=== PATIENT | female | born 1975 | race Caucasian/White ===

== ENCOUNTER 2024-11-17 12:07 | Outpatient (REF) | payer OTHER, SELFPAY ==
[2024-11-17 15:17] LABS: Folate 12.1 ng/mL (> or = 4.0); Vitamin B12 364 pg/mL (200-900)
[2024-11-18 06:53] LABS: Lyme Abs Screen <0.90 index
== END 2024-11-17 12:08 | disposition home or self-care (01) ==
LOC: HO.LAB 12:07
PROVIDERS: PCP Internal Medicine; Visit Provider Psychiatry & Neurology Neurology
DX: G43.009 Migraine without aura, not intractable, without status migrainosus (principal); G93.40 Encephalopathy, unspecified; Z01.84 Encounter for antibody response examination
CPT/HCPCS: 36415; 82607; 82746; 86617; 86618

== ENCOUNTER 2024-11-17 12:07 | Outpatient (AMB) | payer OTHER, SELFPAY ==
--- NOTE | 2024-11-17 12:13 | A.OFFVIS_ITS ---
Intake Visit Reasons: 1YR Allergies No Known Allergies Allergy (Verified 09/18/24 08:36) HPI Comments Details: 49 years old woman with breast cancer status post mastectomy and being treated with tamoxifen, and migraine without aura relatively better with topiramate and as-needed sumatriptan. She is presenting with cognitive dysfunction characterized by significant brain fog, difficulties in word finding, sentence completion, and name recall. These symptoms began when she started taking tamoxifen two years ago after breast cancer treatment. She links these cognitive symptoms primarily to tamoxifen, having taken Topamax for migraines without prior cognitive issues. Additionally, she experiences migraines, noting improvement recently attributed to reduced stress. The patient takes migraine medication daily, with another medication as needed. Her medical history includes breast cancer, treated with a double mastectomy and subsequent tamoxifen therapy due to its stage 1 classification. [facility] Medical History (Updated 11/17/24 @ 12:20 by Mike Aguirre MD) Migraine without aura Review of Systems Const Details: - Neurological: Reports migraines, cognitive dysfunction including brain fog, difficulties in word finding, sentence completion, and name recall. - Psychiatric: Reports improved stress levels. - Sleep: Denies sleep disturbances. - General: Denies any implantable metal or devices like pacemakers. Physical Exam Neuro Other: She is alert and awake with normal spontaneity of speech fluency comprehension and somewhat flat affect. Balance gait and coordination are normal. Assessment & Plan Assessment & Plan (1) Migraine without aura: Code(s): G43.009 - Migraine without aura, not intractable, without status migrainosus Category: Medical Qualifiers: Status migrainosus presence: without status migrainosus Intractability: not intractable Qualified Code(s): G43.009 - Migraine without aura, not intractable, without status migrainosus (2) Encephalopathy: Code(s): G93.40 - Encephalopathy, unspecified Category: Medical Qualifiers: Encephalopathy type: unspecified encephalopathy Qualified Code(s): G93.40 - Encephalopathy, unspecified Plan During the consultation, we addressed the patient's migraines and cognitive symptoms. We discussed the potential link between tamoxifen and cognitive dysfunction, noting the patient's symptom onset post-initiation of the medication. For migraines, the current regimen continues as effective and involves Topamax daily, complemented by another medication as needed. To evaluate cognitive dysfunction, diagnostic tests including an MRI will be arranged. Blood work will also be conducted to exclude other causes. We reviewed no changes to her cancer-related treatment. MRI results and blood test findings will guide further management. Orders: Orders MR head/brain wo/w con Today G93.40 - Encephalopathy, unspecified Vitamin B12 and Folate Today G93.40 - Encephalopathy, unspecified Lyme IgG/IgM w/reflex to WB Today G93.40 - Encephalopathy, unspecified Medications: New topiramate 50 mg PO DAILY 90 tabs 1RF Changed From sumatriptan succinate take 1 tab at onset of headache; if no relief may repeat 1 tab after at least 2 hrs; max = 4 tabs/24 hr PO To sumatriptan succinate 50 mg orally one a day as needed; 30 tabs 1RF 90 days Coding Level of Care Code Est Pt Level 5 (27315) Diagnoses Migraine without aura and without status migrainosus, not intractable G43.009 Status migrainosus presence: without status migrainosus Intractability: not intractable Encephalopathy, unspecified type G93.40 Encephalopathy type: unspecified encephalopathy
--- OUTSIDE RECORDS SUMMARY | 2024-11-17 15:01 | XMS_ITS | Continuity of Care Document ---
Author Organization [facility] Address [address] [place] [address] Phone [phone] Care Team Providers Care Clearance Rep Name Role Phone Eros Mccall M.D. Care Team Information Skid Man [phone] Problems Active Problems Provider Date Cyst of thyroid Joaquín Roque M.D. Onset: Migraine Joauqín Roque M.D. Onset: Acne Joaquín Roque M.D. Onset: Carcinoma of breast Joaquín Roque M.D. Onset: 12/24/2022 Social History Type Date Description Comments Sex Female Sex Unknown Tobacco Use Start: Unknown Never Smoked Cigarettes Smoking Status Reviewed: 12/24/22 Never Smoked Cigaret nakul ETOH Use Occasionally consumes alcoho l Allergies and adverse reactions Description No Known Drug Allergies Medications Active Medications SIG Qnty Indications Order ing Provider Date [id number] Tablets 1 by mouth once a day 180tabs Tamie Venegas Hxpnmstuyw84ik Tablets take 1 tablet by mouth twice a day 180tabs Mike Aguirre MD Sumatriptan Ttphlrcrw64je Tablets take 1 tablet by mouth every day as needed for migraine 9tabs Mike Aguirre MD Tretinoin0.025% Cream apply sparingly to the face daily for maintenance Tamie Venegas Tamoxifen Lwnnyei77rt Tablets Unknown Vital Signs Date Vital Result Comment 02/07/2024 3:38pm BP Systolic 108 mmHg BP Diastolic 70 mmHg Heart Rate 84 /min Height 62 inches 5'2 Weight 135.00 lb BMI (Body Mass Index) 24.7 kg/m2 Medical Devices Description No Information Available Encounters Type Date Location Provider Dx Diagnosis Office Visit 02/07/2024 3:15p Main Office ANDRA Forde E04.1 Nontoxic sing le thyroid nodule Assessments Date Code Description Provider 02/07/2024 E04.1 Thyroid nodule ANDRA Cain Plan of Treatment Future Appointment(s):* 02/05/2025 9:00 am - Beverly Marino CNP at Main Office 02/07/2024 - ANDRA Forde* E04.1 Thyroid nodule Functional Status Description No Information Available Mental Status Description No Information Available Referrals Description No Information Available
== END 2024-11-17 12:27 | disposition home or self-care (01) ==
LOC: HO.HSM 12:07
PROVIDERS: PCP Internal Medicine; Visit Provider Psychiatry & Neurology Neurology
DX: G43.009 Migraine without aura, not intractable, without status migrainosus (principal); G93.40 Encephalopathy, unspecified
CPT/HCPCS: 99214

== ENCOUNTER 2024-12-23 14:53 | Outpatient (AMB) | payer OTHER, SELFPAY ==
--- NOTE | 2024-12-23 15:14 | MHC.OFFVIS ---
Intake Visit Reasons: after mri Allergies No Known Allergies Allergy (Verified 09/18/24 08:36) HPI Comments Details: 49 years old woman with breast cancer status post mastectomy and being treated with tamoxifen, and migraine without aura relatively better with topiramate and as-needed sumatriptan. She is presenting with brain fog and word-finding difficulty. The patient started experiencing these cognitive difficulties after initiating Tamoxifen and has been using Topiramate for migraine prevention for several years without noticing cognitive side effects prior. Her sleep is described as satisfactory if she receives at least eight hours; however, snoring and potential Sleep Apnea may influence her restfulness, correlating with her small chin and narrow throat features. There is no significant apprehension concerning dementia on her part. The reliance on caffeine to maintain alertness was noted but not excessively detrimental to daily functioning. [facility] Medical History (Updated 12/23/24 @ 15:25 by Mike Aguirre MD) Migraine without aura Review of Systems Narrative - Neurological: Reports brain fog, word-finding difficulty. - Sleep: Reports adequate sleep with snoring; requires 8 hours for restfulness. - Musculoskeletal: No specific issues mentioned or denied. - Cardiovascular: Not explicitly mentioned or denied. - Respiratory: Not explicitly mentioned or denied. Physical Exam Neuro Other: Mental Status: Alert and oriented to person, place, and time. Normal attention. Normal spontaneous speech, fluency, and comprehension. Cranial Nerves: CN II: Visual love full to confrontation, visual acuity intact. CN III, IV, : Pupils equal, round, reactive to light and accommodation. Extraocular movements are normal. CN V: Facial sensation is normal. CN VII: Facial movements symmetrical. CN VIII: Hearing intact to bedside conversation is normal. CN IX, X: Palate elevates symmetrically. CN XI: Shoulder shrug and head turn symmetrical. CN XII: Tongue midline without atrophy or fasciculations. Motor: Bulk and tone normal in all extremities. No significant muscle weakness in arms and legs. No drift. Reflexes: Deep tendon reflexes 2+ and symmetric. Plantar response down-going bilaterally. Coordination: Nzvdtw-wq-pore and rqho-pl-rttc testing normal. No dysmetria. Gait and Station: No obvious gait abnormality. No ataxia or instability. Extrapyramidal: Full facial expressions and blinking. No rigidity. Movements are appropriate with no tremor or abnormality. Speech: Normal; no dysarthria or tremor. Results Reviewed Results Reviewed: Laboratory Tests 11/17/24 12:42 Vitamin B12 364 Folate 12.1 Lyme Screen IgG & IgM <0.90 Lyme Progressive Test TNP Assessment & Plan Assessment & Plan (1) Migraine without aura: Comment: MRI brain [facility] at [place] in Nov 2024: WNL (reported). CD did not open Code(s): G43.009 - Migraine without aura, not intractable, without status migrainosus Category: Medical Qualifiers: Status migrainosus presence: without status migrainosus Intractability: not intractable Qualified Code(s): G43.009 - Migraine without aura, not intractable, without status migrainosus (2) ALEJANDRINA (obstructive sleep apnea): Code(s): G47.33 - Obstructive sleep apnea (adult) (pediatric) Category: Medical Plan Impression: 1. Migraine without aura treated with topiramate with success for many years 2. Mild cognitive difficulties with normal labs were normal brain MRI. She was on tamoxifen and was thinking that that was the reason for her problems. She also has micrognathia and relatively neuro throat. These features put her at risk for obstructive sleep apnea, which can also present with similar symptoms. Recommendations: Home polysomnogram Orders: Orders RT home sleep study Today G47.33 - Obstructive sleep apnea (adult) (pediatric) Coding Level of Care Code Est Pt Level 4 (40335) Diagnoses Migraine without aura and without status migrainosus, not intractable G43.009 Status migrainosus presence: without status migrainosus Intractability: not intractable ALEJANDRINA (obstructive sleep apnea) G47.33
--- OUTSIDE RECORDS SUMMARY | 2024-12-23 19:18 | XMS_ITS | Encounter Summary ---
Author Organization [facility] Address [address] [place] [address] Phone Care Team Providers Care Alternative Education Teacher Name Role Phone CalEros tabares Savana SANTILLAN Primary Care Provider [phone] Self-Referred, Patient Unavailable Unavailab Zachariah Monroy MD, PhD Unavailable + [phone] Encounter Details Date Type Department Care Team (Late st Contact Info) Description 03/25/2023 Procedure Pass [facility] Periop 1st floor [address] [place] [address] Social History Tobacco Use Types Packs/Day Years Used Date Smoking Tobacco: Never Smokeless Tobacco: Never Alcohol Use Standard Drinks/Week Comments Yes 2 (1 standard drink = 0.6 oz pur e alcohol) Rarely, last drink 09/2022 Child or Family Care Answer Date Record ed Do you have problems with on e of the following making it difficult for you to work, study, or receive health care? No 10/23/2022 Education Answer Date Recorded Are you interested in help w ith more adult education (for example, completing high school, GED, job training, learning the Amharic language, technical skills, or developing parenting skills)? No 10/23/2022 Are you concerned about learning? Not on file 10/23/2022 No 10/23/2022 Yes 10/23/2022 Food Answer Date Recorded Within the past 6 months we worried whether our food would run out before we got money to buy more. Never True 10/23/2022 Within the past 6 months the food we bought just didn't last and we didn't have enough money to get more. Never True Residential Stability Answer Date Recor ded What is your housing situation today? I have jb rogers 10/23/2022 How many times have you move d in the past 12 months? Zero (I did not move) 10/23/2022 Paying for Meds Answer Date Recorded Do you have trouble paying for medicines? No 10/23/2022 Paying Utility Bills Answer Date Record ed Do you have trouble paying your heating or elect ricity bill? No 10/23/2022 Transportation Answer Date Recorded Has the lack of transportati on kept you from medical appointments or from getting medications? No 10/23/2022 Digital Access Answer Date Recorded No 10/19/2022 No 10/19/2022 Reliable internet access at home? Not on file 10/19/2022 Device with a working camera? Not on file Intimate Partner Violence Answer Date R ecorded Are you denied basic needs s uch as food, clothing, or medical care? No 03/25/2023 In the past 12 months have y ou been in a relationship with a person who hurts, threatens, or tries to control you? No 03/25/2023 Are you denied basic needs s uch as food, clothing, or medical care? No 03/25/2023 In the past 12 months have y ou been in a relationship with a person who hurts, threatens, or tries to control you? No 03/25/2023 Comments No Sex and Gender Information Value Date Recorded Sex Assigned at Female 10/19/2022 4:43 PM EDT Legal Sex Female 11:32 AM EDT Gender Identity Female 10/19/2022 4:43 PM EDT Sexual Orientation Straight 10/19/2022 4: 43 PM EDT documented as of this encounter Plan of Treatment Upcoming Encounters Date Type Department Care Team (Late st Contact Info) Description 03/29/2025 9:00 AM EST Office Visit [facility], [facility], [facility] [place] at [address] [address] Annetta Linares NP [address] [place] [address] [place] [address] [email or web address] Olivia Scott MD [address] [place] [phone] [email or web address] 03/29/2025 9:30 AM EST Office Visit [facility], [facility] [place] [facility], [facility] [place] [facility] [place] [address] [address] Zachariah Hi MD, PhD [address] [place] [address] [email or web address] documented as of this encounter Visit Diagnoses Not on filedocumented in this encounter Care Teams Alternative Education Teacher Relationship Specialty Start Date End Date Eros Mccall MD [address] [place] [address] PCP - General Internal Medicine 10/19/22 Self-Referred, Patient 10/19/22 Zachariah Hi MD, PhD [address] [place] [address] [email or web address] Medical Oncology 05/08/23 documented as of this encounter Additional Source Comments The information contained in this document represents components of the legal health record. It is not the complete legal health record.[facility]
--- OUTSIDE RECORDS SUMMARY | 2024-12-23 19:18 | XMS_ITS | Encounter Summary ---
Author Organization [facility] Address [address] [place] [address] Phone Care Team Providers Care Land Mobile Radio Technician Name Role Phone CalEros tabares Savana SANTILLAN Primary Care Provider [phone] Self-Referred, Patient Unavailable Unavailab Zahcariah Monroy MD, PhD Unavailable + [phone] Encounter Details Date Type Department Care Team (Late st Contact Info) Description 10/30/2022 Procedure Pass [facility] [address] [facility] 2nd [place] [address] Social History Tobacco Use Types Packs/Day Years Used Date Smoking Tobacco: Never Smokeless Tobacco: Never Alcohol Use Standard Drinks/Week Comments Yes 1 (1 standard drink = 0.6 oz pur e alcohol) Child or Family Care Answer Date Record ed Do you have problems with on e of the following making it difficult for you to work, study, or receive health care? No 10/23/2022 Education Answer Date Recorded Are you interested in help w ith more adult education (for example, completing high school, GED, job training, learning the Croatian language, technical skills, or developing parenting skills)? [...] with a working camera? Not on file Comments Unknown Sex and Gender Information Value Date Recorded [...] Oncology, [facility], [facility] [place] at [address] [address] Annetta Linares NP [address] [place] [phone] [email or web address] Olivia Scott MD [address] [place] [phone] [email or web address] 03/29/2025 9:30 AM EST Office Visit [facility], [facility], [facility] [place] [facility] [place] [address] [facility] 4th [place] [address] Zachariah Hi MD, PhD [address] [place] [address] [email or web address] documented as of this encounter Visit Diagnoses Not on filedocumented in this encounter Care Teams Land Mobile Radio Technician Relationship Specialty Start Date End Date Eros Mccall MD [address] [facility] [address] [place] [address] PCP - General Internal Medicine 10/19/22 Self-Referred, Patient 10/19/22 Zachariah Hi MD, PhD [address] [place] [phone] [email or web address] Medical [email or web address] 05/08/23 documented as of this encounter Additional Source Comments The information contained in this document represents components of the legal health record. It is not the complete legal health record.[facility]
--- OUTSIDE RECORDS SUMMARY | 2024-12-23 19:18 | XMS_ITS | Encounter Summary ---
Author Organization [facility] Address [address] [place] [address] Phone Care Team Providers Care Grounds Cleaner Name Role Phone Cal, Erosdre Sawant MD Primary Care Provider [phone] Self-Referred, Patient Unavailable Unavailab Zachariah Monroy MD, PhD Unavailable + [phone] Encounter Details Date Type Department Care Team (Late st Contact Info) Description 10/31/2022 Ancillary Orders [facility] [address] [address] Olivia Scott MD [address] [place] [phone] [email or web address] Abnormal finding on breast imaging Social History Tobacco Use Types Packs/Day Years [...] high school, GED, job training, learning the Macedonian language, technical skills, or developing parenting skills)? [...] your housing situation today? I have jb sing 10/23/2022 How many times have you move [...] Oncology, [facility], [facility] [place] [facility] [place] [address] [address] Annetta Linares NP [address] [place] [phone] [email or web address] Olivia Scott MD [address] [place] [address] [email or web address] 03/29/2025 9:30 AM EST Office Visit [facility], [facility], [facility] [place] [facility] [place] [address] [address] Zachariah Hi MD, PhD [address] [place] [phone] [email or web address] documented as of this encounter Visit Diagnoses Diagnosis Abnormal finding on breast imaging documented in this encounter Care Teams Grounds Cleaner Relationship Specialty Start Date End Date Eros Mccall MD [address] [facility] [address] [place] [address] PCP - General Internal Medicine 10/19/22 Self-Referred, Patient 10/19/22 Zachariah Hi MD, PhD [address] [place] [phone] [email or web address] Medical Oncology 05/08/23 documented as of this encounter Additional Source Comments The information contained in this document represents components of the legal health record. It is not the complete legal health record.[facility]
--- OUTSIDE RECORDS SUMMARY | 2024-12-23 19:18 | XMS_ITS | Continuity of Care Document ---
Author Organization [facility] Address [address] [place] [address] Phone [phone] Care Team Providers Care Portable Sawmill Operator Name Role Phone Eros Mccall M.D. Care Team Information Centerpuncher [phone] Problems Active Problems Provider Date Cyst of thyroid Joaquín Roque M.D. Onset: Migraine Joaquín Roque M.D. Onset: Acne Joaquín Roque M.D. Onset: Carcinoma of breast Joaquín Roque M.D. Onset: 12/24/2022 Social History Type Date Description Comments Sex Female Sex Unknown Tobacco Use Start: Unknown Never Smoked Cigarettes ETOH Use Occasionally consumes alcoho l Allergies and adverse reactions Description No Known Drug Allergies Medications Active Medications SIG Qnty Indications Order ing Provider Date Bfkjhtndwfduar974mr Tablets 1 by mouth once a day 180tabs Tamie Venegas Yhllszgsqg14sj Tablets take 1 tablet by mouth twice a day 180tabs Mike Aguirre MD Sumatriptan Kvmlkfaeb71ae Tablets take 1 tablet by mouth every day as needed for migraine 9tabs Mike Aguirre MD Tretinoin0.025% Cream apply sparingly to the face daily for maintenance Tamie Venegas Tamoxifen Jgxscof98fv Tablets Unknown Vital Signs Date Vital Result [...]
--- OUTSIDE RECORDS SUMMARY | 2024-12-23 19:18 | XMS_ITS | Encounter Summary ---
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, estrogen receptor positive Procedures MRI Breast (Left) MRP Biopsy Breast (Left) KS BX BREAST W DEVICE 1ST LESION MAGNETIC RES GUIDE KS BX BREAST W DEVICE ADDL LESION MAGNET RES GUIDE CHG DIAGNOSTIC MAMMOGRAPHY COMPUTER-AIDED DETCJ UNI CHG X-RAY EXAM, BREAST SPECIMEN KS MOD SED SAME PHYS/QHP INITIAL 15 MINS 5/> YRS KS MOD SED SAME PHYS/QHP EACH ADDL 15 MINS CHG MRI BREAST W/OUT&WITH CONTRAST W/CAD UNILATERAL Olivia Scott MD Phone: tel: fax: mailto:[email or web address] Referral ID Status Reason Start Date Expiration Date Visits Re quested Visits Authorized [id number] Closed 10/31/2022 04/29/2023 1 1 Encounter Details Date Type Department Care Team (Late st Contact Info) Description 10/31/2022 Ancillary Orders [facility], [facility], [facility] [place] [facility] [place] [address] [facility] 4th [place] [address] Olivia Scott MD [address] [place] [address] [email or web address] Carcinoma of central portion of right breast in female, estrogen receptor positive Social History Tobacco Use Types Packs/Day Years [...] high school, GED, job training, learning the Uzbek language, technical skills, or developing parenting skills)? [...] Oncology, [facility], [facility] at [address] [address] Annetta Linares NP [address] [place] [address] [email or web address] Olivia Scott MD [address] [place] [address] [email or web address] 03/29/2025 9:30 AM EST Office Visit [facility], [facility], [facility] at [address] [address] Zachariah Hi MD, PhD [address] [place] [address] [email or web address] documented as of this encounter Results * BI MRI BREAST WITH AND WITHOUT CONTRAST (LEFT) (10/31/2022 4:26 PM EDT) Anatomical Region Laterality Modality Breast Left, Breast Bilateral Left Ma gnetic Resonance 10/31/2022 4:49 PM EDT Impressions 11/01/2022 9:10 AM EDT MRI guided biopsy was terminated due to a large portion of the bolus of contrast extravasating into the patient's left arm. After a period of observation in the [facility] MRI suite, patient was discharged home with the plan of rescheduling the biopsy for 11/01/2022 at 3:15 PM. ATTESTATION: Hanh Connelly, as teaching physician have reviewed the images, if any, for this patient's exam, and if necessary, have edited the report originally created by Su De Jesus. Narrative 11/01/2022 9:10 AM EDT BI MRP BIOPSY BREAST (LEFT) Additional patient information: 47-year-old woman with recently diagnosed right breast invasive lobular carcinoma presents for MRI guided biopsy of an enhancing mass in the central outer left breast at posterior depth. COMPARISON: Comparison is made with relevant prior imaging. TECHNIQUE: The procedure was explained to the patient, including discussion of risks and benefits, and written informed consent was obtained. A preprocedural timeout was performed to confirm patient identity with multiple identifiers, as well as the side of the procedure to be performed. MRI imaging was performed to localize the target. Intravenous gadolinium contrast was administered. A portion of the bolus of contrast extravasated into the patient's left arm. The patient was immediately examined by Su De Jesus MD, and Hanh Morales MD. The patient endorsed discomfort in the upper left arm; however, she denied any numbness/tingling. Patient demonstrated full range of motion and sensation of the left hand and fingers. Radial pulse was palpated. Patient was instructed to elevate the left arm and apply cold compresses. She was observed in the [facility] MRI suite for 15 minutes without incident. She was then discharged home with a plan of rescheduling the biopsy for a future date. Patient was called at 8:[address] Hanh Morales on 10/31/2022 and reported resolving symptoms. FINDINGS: MRI guided biopsy was terminated due to a partial bolus contrast extravasating into the patient's left arm. Patient has been rescheduled for 3:15 PM on 11/01/2022. Procedure Note Hanh Morales MD - 11/01/2022 BI MRP BIOPSY BREAST (LEFT) Additional patient information: 47-year-old woman with recently diagnosedright breast invasive lobular carcinoma presents for MRI guided biopsy ofan enhancing mass in the central outer left breast at posterior depth. COMPARISON: Comparison is made with relevant prior imaging. TECHNIQUE: The procedure was explained to the patient, including discussion of risksand benefits, and written informed consent was obtained. A preproceduraltimeout was performed to confirm patient identity with multipleidentifiers, as well as the side of the procedure to be performed. MRI imaging was performed to localize the target. Intravenous gadoliniumcontrast was administered. A portion of the bolus of contrast extravasatedinto the patient's left arm. The patient was immediately examined by MD Iain, and Hanh Morales MD. The patient endorsed discomfort inthe upper left arm; however, she denied any numbness/tingling. Patientdemonstrated full range of motion and sensation of the left hand andfingers. Radial pulse was palpated. Patient was instructed to elevate theleft arm and apply cold compresses. She was observed in the [facility] MRIsuite for 15 minutes without incident. She was then discharged home with aplan of rescheduling the biopsy for a future date. Patient was called at8:[address] Hanh Morales on 10/31/2022 and reported resolvingsymptoms. FINDINGS: MRI guided biopsy was terminated due to a partial bolus contrastextravasating into the patient's left arm. Patient has been rescheduledfor 3:15 PM on 11/01/2022. IMPRESSION: MRI guided biopsy was terminated due to a large portion of the bolus ofcontrast extravasating into the patient's left arm. After a period ofobservation in the [facility] MRI suite, patient was discharged home withthe plan of rescheduling the biopsy for 11/01/2022 at 3:15 PM. ATTESTATION: Hanh Connelly, as teaching physician have reviewed theimages, if any, for this patient's exam, and if necessary, have edited thereport originally created by Su De Jesus. us Olivia Scott MD IMG MR BREAST Final Result documented in this encounter Visit Diagnoses Diagnosis Carcinoma of central portion of right breast in female, estrogen receptor positive Carcinoma of central portion of right breast in female, estrogen receptor positive documented in this encounter Care Teams Lithographic Plate Maker Apprentice Relationship Specialty Start Date End Date Eros Mccall MD [address] [facility] [address] [place] [address] PCP - General Internal Medicine 10/19/22 Self-Referred, Patient 10/19/22 Zachariah Hi MD, PhD [address] [place] [address] [email or web address] Medical Oncology 05/08/23 documented as of this encounter Additional Source Comments The information contained in this document represents components of the legal health record. It is not the complete legal health record.[facility]
--- OUTSIDE RECORDS SUMMARY | 2024-12-23 19:18 | XMS_ITS | Encounter Summary ---
Author Organization [facility] Address [address] [facility] [address] [place] [address] Phone Care Team Providers Care Jewelry Repairer Name Role Phone CalDmitrydre Sawant MD Primary Care Provider [phone] Self-Referred, Patient Unavailable Unavailab Zachariah Monroy MD, PhD Unavailable + [phone] Encounter Details Date Type Department Care Team (Late st Contact Info) Description 10/31/2022 Ancillary Orders [facility], [facility] [place] [facility], [facility] [place] [address] [place] [address], 9th [place] [address] Olivia Scott MD [address] [place] [address] [email or web address] Social History Tobacco Use Types Packs/Day Years [...] high school, GED, job training, learning the Beninese language, technical skills, or developing parenting skills)? [...] Oncology, [facility], [facility] [place] [facility] [place] [address] [facility] 4th [place] [address] Annetta Linares NP [address] [place] [address] [email or web address] Olivia Scott MD [address] [place] [address] [email or web address] 03/29/2025 9:30 AM EST Office Visit [facility], [facility], [facility] [place] [facility] [place] [address] [address] Zachariah Hi MD, PhD [address] [place] [address] [email or web address] documented as of this encounter Visit Diagnoses Not on filedocumented in this encounter Care Teams Jewelry Repairer Relationship Specialty Start Date End Date Eros Mccall MD [address] [facility] [address] [place] [address] PCP - General Internal Medicine 10/19/22 Self-Referred, Patient 10/19/22 Zachariah Hi MD, PhD [address] [place] [address] [email or web address] Medical Oncology 05/08/23 documented as of this encounter Additional Source Comments The information contained in this document represents components of the legal health record. It is not the complete legal health record.[facility]
--- OUTSIDE RECORDS SUMMARY | 2024-12-23 19:18 | XMS_ITS | Encounter Summary ---
Author Organization [facility] Address [address] [place] [address] Phone Care Team Providers Care Tafe Teacher Name Role Phone CalEros tabares Savana SANTILLAN Primary Care Provider [phone] Self-Referred, Patient Unavailable Unavailab Zachariah Monroy MD, PhD Unavailable + [phone] Encounter Details Date Type Department Care Team (Late st Contact Info) Description 11/29/2022 Procedure Pass BWF Periop 1st floor [address] [place] [address] Social History Tobacco Use Types Packs/Day Years [...] high school, GED, job training, learning the Greenlandic language, technical skills, or developing parenting skills)? [...] a working camera? Not on file Comments No Sex and Gender Information Value [...] Oncology, [facility], [facility] at [address] [address] Annetta Linares NP [address] [place] [address] [email or web address] Olivia Scott MD [address] [place] [address] [email or web address] 03/29/2025 9:30 AM EST Office Visit [facility], [facility], [facility] at [place] [address] [facility] 4th [place] [address] Zachariah Hi MD, PhD [address] [place] [address] [email or web address] documented as of this encounter Visit Diagnoses Not on filedocumented in this encounter Care Teams Tafe Teacher Relationship Specialty Start Date End Date Eros Mccall MD [address] [place] [address] [address] [place] [address] PCP - General Internal Medicine 10/19/22 Self-Referred, Patient 10/19/22 Zachariah Hi MD, PhD [address] [place] [address] [email or web address] Medical Oncology 05/08/23 documented as of this encounter Additional Source Comments The information contained in this document represents components of the legal health record. It is not the complete legal health record.[facility]
--- OUTSIDE RECORDS SUMMARY | 2024-12-23 19:18 | XMS_ITS | Encounter Summary ---
Author Organization [facility] Address [address] [facility] [address] [place] [address] Phone Care Team Providers Care Public Relations Supervisor Name Role Phone Eros Mccall MD Primary Care Provider [phone] Self-Referred, Patient Unavailable Unavailab Zachariah Monroy MD, PhD Unavailable + [phone] Reason for Referral * Outpatient Procedure - Closed Specialty Diagnoses / Procedures Referred By Karine villarreal Referred To Contact Radiology Diagnoses Abnormal finding on breast imaging Procedures Mammogram Diagnostic Post Procedure (Left) Olivia Scott MD Phone: tel: fax: mailto:[email or web address] Referral ID Status Reason Start Date Expiration Date Visits Re quested Visits Authorized [id number] Closed 10/30/2022 10/30/2023 1 1 Encounter Details Date Type Department Care Team (Late st Contact Info) Description 10/30/2022 Ancillary Orders [facility] Breast Imaging [address] [place] [address] Olivia Scott MD [address] [place] [address] [email or web address] Abnormal finding on breast imaging Social History [...] high school, GED, job training, learning the Danish language, technical skills, or developing parenting skills)? [...] Office Visit [facility], [facility] [place] [place] [facility], [facility] at [address] [address] Annetta Linares NP [address] [place] [phone] [email or web address] Olivia Scott MD [address] [place] [address] [email or web address] 03/29/2025 9:30 AM EST Office Visit [facility], [facility] [place] [facility], [facility] at [address] [address] Zachariah Hi MD, PhD [address] [place] [address] [email or web address] documented as of this encounter Results * BI MAMMOGRAM DIAGNOSTIC POST PROCEDURE NO TOMOSYNTHESIS NO CAD (LEFT) (11/01/2022 4:35 PM EDT) Anatomical Region Laterality Modality Breast Left Left Mammography 11/01/2022 4:25 PM EDT Addenda Addendum by Carl Little MD, MSc on 11/07/2022 1:04 PM EDT ADDENDUM: Core biopsy of focal non-mass enhancement in the left breast: Pathology findings: Sclerosing adenosis (multiple foci, measuring at least 0.5 cm). Fibroadenomatoid change (at least 0.2 cm). This result is: Benign and concordant. Recommendation: Recommend surgical management of contralateral breast cancer (the patient is scheduled for bilateral mastectomy). Overall recommendation: Surgical consultation. Communication of results: The patient has already been informed of the results as documented in the EHR. Impressions 11/01/2022 4:36 PM EDT MRI guided core needle biopsy of 0.7 cm focal non-mass enhancement in the central outer left breast at posterior depth (cork clip) - please see report content for details. An addendum to this report will be dictated when pathology results are available. The attending physician, Carl Little, was present for the entire radiologic and yip portions of the procedure and was immediately available for the non-critical/yip portions. ATTESTATION: I, Carl Little, as teaching physician have reviewed the images, if any, for this patient's exam, and if necessary, have edited the report originally created by Sarahi Meza. Narrative 11/01/2022 4:36 PM EDT BI MRP BIOPSY BREAST (LEFT), BI MAMMOGRAM DIAGNOSTIC POST PROCEDURE NO TOMOSYNTHESIS NO CAD (LEFT) Additional patient information: 47-year-old woman with recently diagnosed right breast invasive lobular carcinoma presents for MRI guided biopsy of a 0.7 cm area of focal non-mass enhancement in the central outer left breast at [...] the target. Intravenous gadolinium contrast was administered. The procedure site was prepped using standard aseptic technique. Local anesthesia was administered and documented in the EMR. Under MRI guidance, core biopsy was performed of the target lesion. FINDINGS: SITE #1 Location: Left breast central outer breast at posterior depth Target: 0.7 cm focal non-mass enhancement Device: 9-gauge standard core biopsy needle with vacuum assistance Clip: A cork shape clip was placed at the procedure site. Post procedure mammogram: Biopsy clip in good position. Specimen: Multiple cores obtained. Submitted in formalin to pathology. The patient tolerated the procedure and there were no immediate complications. Procedure Note Carl Little MD, MSc - 11/01/2022 BI MRP BIOPSY BREAST (LEFT), BI MAMMOGRAM DIAGNOSTIC POST PROCEDURE NOTOMOSYNTHESIS NO CAD (LEFT) Additional patient information: 47-year-old woman with recently diagnosedright breast invasive lobular carcinoma presents for MRI guided biopsy ofa 0.7 cm area of focal non-mass enhancement in the central outer leftbreast at posterior depth. COMPARISON: Comparison is made with relevant prior imaging. TECHNIQUE: The procedure was explained to the patient, including discussion of risksand benefits, and written informed consent was obtained. A preproceduraltimeout was performed to confirm patient identity with multipleidentifiers, as well as the side of the procedure to be performed. MRI imaging was performed to localize the target. Intravenous gadoliniumcontrast was administered. The procedure site was prepped using standardaseptic technique. Local anesthesia was administered and documented in theEMR. Under MRI guidance, core biopsy was performed of the target lesion. FINDINGS: SITE #1 Location: Left breast central outer breast at posterior depth Target: 0.7 cm focal non-mass enhancement Device: 9-gauge standard core biopsy needle with vacuum assistance Clip: A cork shape clip was placed at the procedure site. Post procedure mammogram: Biopsy clip in good position. Specimen: Multiple cores obtained. Submitted in formalin to pathology. The patient tolerated the procedure and there were no immediatecomplications. IMPRESSION: MRI guided core needle biopsy of 0.7 cm focal non-mass enhancement in thecentral outer left breast at posterior depth (cork clip) - please seereport content for details. An addendum to this report will be dictated when pathology results areavailable. The attending physician, Carl Little, was present for the entireradiologic and yip portions of the procedure and was immediately availablefor the non- critical/yip portions. ATTESTATION: I, Carl Little, as teaching physician have reviewedthe images, if any, for this patient's exam, and if necessary, have editedthe report originally created by Sarahi Meza. Olivia Scott MD [facility] MG EXAMS Edited Result - Final documented in this encounter Visit Diagnoses Diagnosis Abnormal finding on breast imaging documented in this encounter Care Teams Public Relations Supervisor Relationship Specialty Start Date End Date Eros Mccall MD [address] [facility] [address] [place] [address] PCP - General Internal Medicine 10/19/22 Self-Referred, Patient 10/19/22 Zachariah Hi MD, PhD [address] [place] [address] [email or web address] Medical Oncology 05/08/23 documented as of this encounter Additional Source Comments The information contained in this document represents components of the legal health record. It is not the complete legal health record.[facility]
--- OUTSIDE RECORDS SUMMARY | 2024-12-23 19:18 | XMS_ITS | Encounter Summary ---
Author Organization [facility] Address [address] [place] [address] Phone Care Team Providers Care Human Resources Services Specialist Name Role Phone CalDmitry tabaresdre Sawant MD Primary Care Provider [phone] Self-Referred, Patient Unavailable Unavailab Zachariah Monroy MD, PhD Unavailable + [phone] Encounter Details Date Type Department Care Team (Late st Contact Info) Description 10/31/2022 Procedure Pass [facility] [address] [place] [address] Social History Tobacco Use Types Packs/Day Years [...] high school, GED, job training, learning the [place] language, technical skills, or developing parenting skills)? [...] Oncology, [facility], [facility] [place] at [address] [address] Annetta Linares NP [address] [place] [address] [email or web address] Olivia Scott MD [address] [place] [address] [email or web address] 03/29/2025 9:30 AM EST Office Visit [facility], [facility], [facility] [place] [facility] [place] [address] [facility] [address] [place] [address] Zachariah Hi MD, PhD [address] [place] [address] [email or web address] documented as of this encounter Visit Diagnoses Not on filedocumented in this encounter Care Teams Human Resources Services Specialist Relationship Specialty Start Date End Date Eros Mccall MD [address] [facility] [address] [place] [address] PCP - General Internal Medicine 10/19/22 Self-Referred, Patient 10/19/22 Zachariah Hi MD, PhD [address] [place] [address] [email or web address] Medical Oncology 05/08/23 documented as of this encounter Additional Source Comments The information contained in this document represents components of the legal health record. It is not the complete legal health record.[facility]
--- OUTSIDE RECORDS SUMMARY | 2024-12-23 19:18 | XMS_ITS | Encounter Summary ---
Author Organization [facility] Address [address] [facility] [address] [place] [address] Phone Care Team Providers Care Adjunct Faculty Name Role Phone CalDmitrydre Sawant MD Primary Care Provider [phone] Self-Referred, Patient Unavailable Unavailab Zachariah Monroy MD, PhD Unavailable + [phone] Encounter Details Date Type Department Care Team (Late st Contact Info) Description 10/30/2022 Ancillary Orders [facility], [facility] [place] [facility], [facility] [place] [address] [place] [address], 9th [place] [address] Olivia Scott MD [address] [place] [address] [email or web address] Social History Tobacco Use Types Packs/Day Years [...] high school, GED, job training, learning the Argentine language, technical skills, or developing parenting skills)? [...] Oncology, [facility], [facility] [place] [facility] [place] [address] [facility] [address] [place] [address] Annetta Linares NP [address] [place] [address] [email or web address] Olivia Scott MD [address] [place] [address] [email or web address] 03/29/2025 9:30 AM EST Office Visit [facility], [facility], [facility] [place] [facility] [place] [address] [address] Zachariah Hi MD, PhD [address] [place] [address] [email or web address] documented as of this encounter Visit Diagnoses Not on filedocumented in this encounter Care Teams Adjunct Faculty Relationship Specialty Start Date End Date Eros Mccall MD [address] [facility] [address] [place] [address] PCP - General Internal Medicine 10/19/22 Self-Referred, Patient 10/19/22 Zachariah Hi MD, PhD [address] [place] [address] [email or web address] Oncology 05/08/23 documented as of this encounter Additional Source Comments The information contained in this document represents components of the legal health record. It is not the complete legal health record.[facility]
--- OUTSIDE RECORDS SUMMARY | 2024-12-23 19:19 | XMS_ITS | Clinical Summary ---
Author Organization [facility] Address [address] [facility] [address] [place] [address] Phone Care Team Providers Care Sprayer Hand Name Role Phone CalEros tabares Nikolayjody Primary Care Provider [phone] Self-Referred, Patient Unavailable Unavailab Zachariah Monroy MD, PhD Unavailable + [phone] Allergies No known active allergies Medications biotin 10,000 mcg Cap 2 Active SUMAtriptan (IMITREX) 50 MG tablet Take by mouth once as needed. 0 Active topiramate (TOPAMAX) 50 MG tablet Take 50 mg by mouth nightly at bedtime. 0 Active spironolactone (ALDACTONE) 100 MG tablet Take 100 mg by mouth 2 (two) times a day. 3 Active tretinoin-niacin amide 0.025-4 % Crea 0 Active clindamycin-kole oyl peroxide (BENZACLIN) gel 5 Active bimatoprost (LATISSE) 0.03 % ophthalmic solution 2 Active therapeutic multivitamin tablet Take 1 tablet by mouth daily. Active calcium carbonate 1,250 mg (500 mg elemental) capsule Take 1,250 mg by mouth 2 (two) times a day with meals. Active cefadroxil (DURICEF) 500 MG capsule Take 1 capsule (500 mg total) by mouth 2 (two) times a day. 10 capsule 4 Active Additional Information Patient not taking.Reported on 07/23/2023 oxyCODONE 5 MG immediate release tablet Take 1 tablet (5 mg total) by mouth every 6 (six) hours as needed. Partial fill ok 10 tablet 4 Active minoxidiL (ROGAINE) 5 % topical foam Apply topically 2 (two) times a day. 180 g 3 4 Active tamoxifen (NOLVADEX) 20 MG tablet TAKE 1 TABLET DAILY 90 tablet 3 5 Active Active Problems Problem Noted Date Diagnosed Date Breast cancer in female 11/29/2022 Carcinoma of central portion of right breast in female, estrogen receptor positive 10/30/2022 Family History Medical History Relation Comments Breast cancer Maternal Aunt Ashkenazi Bahai ancestry Mother Breast cancer Mother Diabetes Mother Heart disease Mother Miscarriages / Stillbirths Mother Ashkenazi Bahai ancestry Paternal Grandmother Breast cancer Paternal Grandmother Ashkenazi Bahai ancestry Sister Breast cancer Sister Cancer Sister thyroid cancer Thyroid cancer Sister Relation Status Comments Maternal Aunt Mother Paternal Grandmother Sister Social History Tobacco Use Types Packs/Day Years [...] Answer Date Recorded Are you interested in more education? Not on ehsan e 11/03/2024 Are you concerned about learning? Not on file 11/03/2024 No 11/03/2024 No 11/03/2024 Food Answer Date Recorded Within the past [...] Orientation Straight 10/19/2022 4: 43 PM EDT Last Filed Vital Signs Vital Sign Reading Time Taken Comments Blood Pressure 115/68 03/23/2024 9:00 AM EST Pulse 71 09/16/2023 8:08 AM EDT Temperature 36.6 C (97.8 F) 03/23/2024 9:00 AM EST Respiratory Rate 16 03/23/2024 9:00 AM EST Oxygen Saturation 98% 03/23/2024 9:00 AM EST Inhaled Oxygen Concentration - - Weight 62.7 kg (138 lb 3.2 oz) 2024 2:48 P M EDT Height 157.5 cm (5' 2 ) 2024 2:48 PM EDT Body Mass Index 25.28 2024 2:48 PM EDT Plan of Treatment Upcoming Encounters Date Type Department Care Team (Late st Contact Info) Description 03/29/2025 9:00 AM EST Office Visit [facility], [facility], [facility] at [address] [address] Annetta Linares NP [address] [place] [address] [email or web address] Olivia Scott MD [address] [place] [address] [email or web address] 03/29/2025 9:30 AM EST Office Visit [facility], [facility], [facility] at [address] [address] Zachariah Hi MD, PhD [address] [place] [address] [email or web address] Health Maintenance Due Date Last Done Comments LIPID PANEL 1976 DEPRESSION SCREENING 1988 PNEUMOCOCCAL VACCINES (0-49 years) (1 of 2 - PCV) 07/16/1995 PAP SMEAR 1997 SCREENING FOR DIABETES 07/16/2011 POTASSIUM LEVEL 08/18/2014 08/18/2013 Adult Td,Tdap Booster 10/04/2018 10/04/2008 COLOGUARD 2021 COLONOSCOPY 2021 COLORECTAL CANCER SCREENING 2021 FIT TEST 2021 FOBT 2021 SIGMOIDOSCOPY 2021 VIRTUAL COLONOSCOPY 2021 INFLUENZA VACCINE (#1) 2024 , 11/20/2019, 11/08/2009, Additional history exists MAMMOGRAM 10/16/2024 10/16/2022, 08/26, 07/20/2022, Additional history exists COVID-19 VACCINE (2024- season) 2024 HEPATITIS C SCREENING Completed 08/18/2013 HIV ONE-TIME SCREENING (18-65 YEARS) Completed 08/18/2013 SMOKING STATUS SCREENING (Once After 26 Yrs) Completed 2024 HEPATITIS A VACCINES Aged Out No long er eligible based on patient's age to complete this topic HIB VACCINES Aged Out No longer eligi ble based on patient's age to complete this topic MENINGOCOCCAL VACCINES (ACWY) Aged Out No longer eligible based on patient's age to complete this topic MENINGOCOCCAL VACCINES (B) Aged Out N o longer eligible based on patient's age to complete this topic Medical Devices Implanted Type Area Pediatric Care Coordinator Device Identifier Shelf Expiration Date Model / Serial / Lot Marker Biopsy 13mm Breast Trimark For Mri Guided Ti Shape Benk Cs/10ea - [id number] Implanted:Qty: 1 on 11/01/2022 by Sarahi Meza MD at [facility] Left: Breast [employer] TRIMARK TD 13MR / / [id number] Graft Tissue 8x20cm Alloderm Ready To Use Regenerative Matrix Med - [id number] Implanted:Qty: 1 on 11/29/2022 by Sneha Cervantes MD at [facility] Right: Breast [employer] 06/24/2024 [id number] / [id number] / Description:#1 Graft Tissue 8x20cm Alloderm Ready To Use Regenerative Matrix Med - [id number] Implanted:Qty: 1 on 11/29/2022 by Sneha Cervantes MD at [facility] Left: Breast [employer] 06/24/2024 [id number] / [id number] / Description:#2 Conveyor Operator Tissue 500cc W14cm H13cm P6.0cm Smooth Natrelle Fourte W/Suture Tabs - [id number] Implanted:Qty: 1 on 11/29/2022 by Sneha Cervantes MD at [facility] Right: Breast [employer] 06/06/2027 133S-MV-14- T / [id number] / [id number] Conveyor Operator Tissue 500cc W14cm H13cm P6.0cm Smooth Natrelle Fourte W/Suture Tabs - [id number] Implanted:Qty: 1 on 11/29/2022 by Sneha Cervantes MD at [facility] Left: Breast [employer] 06/06/2027 133S-MV-14- T / [id number] / [id number] Breast Implant 545cc Natrelle Gel Inspira Style Srx 800 Round Extra Full - [id number] Implanted:Qty: 1 on 03/25/2023 by Sneha Cervantes MD at [facility] Left: Breast [employer] 11/06/2025 SRX-545 / [id number] / [id number] Breast Implant 545cc Natrelle Gel Inspira Style Srx 800 Round Extra Full - [id number] Implanted:Qty: 1 on 03/25/2023 by Sneha Cervantes MD at [facility] Right: Breast [employer] 04/06/2027 SRX-545 / [id number] / [id number] Procedures Procedure Name Priority Date/Time Associated Diagnosis Comments BI MAMMOGRAM OUTSIDE (NO INTERPRETATION) Routine 10/16/2022 12:00 AM EDT HISTORICAL LAB Routine 08/18/2013 3:54 PM EDT from Last 3 Months or Most Recently Relevant to Health Maintenance Results * Mammogram Outside (No Interpretation) (10/16/2022 12:00 AM EDT) Other Narrative [facility] - 10/25/2022 7:09 AM EDT This study is for PACS storage only and not for interpretation. us Olivia Scott MD IMG OUTSIDE IMAGING W/ OUT INTERPRETATION Final Result [facility] * (ABNORMAL) Historical Lab (08/18/2013 3:54 PM EDT) Hemoglobin A1C 5.6 4.3 - 6.4 % [facility] Comment: Note: New normal range HBV Surface AB,Quant <1.00 mIU/mL [facility] Comment: Results less than 10.00 mIU/mL are not consistent with protective immunity. Results of 10.00 mIU/mL or more indicate protective immunity. HBV Surface Ab,Qual Negative [facility] HBV SURFACE ANTIGEN Negative [facility] Calc Mean Bld Glucose 114 mg% [facility] Comment: There is no established normal range for the CMBG (Calculated Mean Blood Glucose). A hemoglobin A1c < 7% is the recommended target for most people with diabetes. The CMBG for an A1c of 7% is 154 mg%. The diagnostic hemoglobin A1c level for diabetes is greater than or equal to 6.5% which is a CMBG greater than or equal to 140 mg%. Plasma Sodium 137 135 - 145 mmol/L [facility] Plasma Potassium 3.6 3.4 - 4.8 mmol/L [facility] Plasma Chloride 101 100 - 108 mmol/L [facility] Plasma Carbon Dioxide 24.6 23.0 - 31.9 mmol/L [facility] Plasma Urea Nitrogen 15 8 - 25 mg/dl [facility] Plasma Creatinine 0.77 0.60 - 1.50 mg/dl [facility] Plasma Glucose 162(Abnorma lly H) 70 - 110 mg/dl [facility] Albumin 4.1 3.3 - 5.0 g/dl [facility] Total Protein 6.8 6.0 - 8.3 g/dl [facility] Calcium 9.0 8.5 - 10.5 mg/dl [facility] Alkaline Phosphatase 40 30 - 100 U/L [facility] Total Bilirubin 0.2 0.0 - 1.0 mg/dl [facility] Transaminase-SG OT 14 9 - 32 U/L [facility] Transaminase-SG PT 13 7 - 33 U/L [facility] Globulin 2.7 1.9 - 4.1 g/dl [facility] eGFR >60 mL/min/1. 73m2 [facility] Comment: Abnormal if <60 mL/min/1.73m2. If patient is -Turkish, multiply the result by 1.21. Plasma Anion GAP 11 3 - 15 mmol/L [facility] HEP B CORE AB, TOT Negative NEG [facility] HCV Antibody Negative [facility] HCG, Quant <6 <6 IU/L [facility] Comment: NON-: <6 BORDERLINE: 6-15 HIV 1/2 AB/AG see comment [facility] Comment: Non-Reactive Results were obtained using a combination assay [HIV 1/2 AB/AG] that detects patient antibodies to HIV 1/HIV 2 and/or the presence of HIV 1 antigen [p24] in patient serum. T SPOT TUBERCULOSIS Negative [facility] Comment: Results Viewable in Attached Link: Performed at [email or web address], [address] [facility], [address], [place] [address] (NOTE)\[id number] 08/18/2013 3:54 PM EDT 08/18/2013 4:31 PM EDT Comment:BLOOD Lori Hall MD LAB B[place] [id number] from Last 3 Months or Most Recently Relevant to Health Maintenance Insurance MARYANN PPO MARYANN PPO CIGNA PPO CIGNA PPO CIGNA PPO CIGNA PPO CIGNA PPO Advance Directives For more information, please contact: [phone] (9AM - 5PM [place], Saturday-Saturday) * Full Code (Latest Code Status on File) Date Activated Date Inactivated Comments 11/29/2022 9:17 PM Question Answer Comments Code Status Confirmed With: Patient Care Teams Sprayer Hand Relationship Specialty Start Date End Date Eros Mccall MD [address] [facility] [address] [place] [address] PCP - General Internal Medicine 10/19/22 Self-Referred, Patient 10/19/22 Zachariah Hi MD, PhD [address] [place] [address] [email or web address] Medical Oncology 05/08/23 Additional Source Comments The information contained in this document represents components of the legal health record. It is not the complete legal health record.[facility]
--- OUTSIDE RECORDS SUMMARY | 2024-12-23 19:19 | XMS_ITS | Encounter Summary ---
Author Organization [facility] Address [address] [place] [address] Phone Care Team Providers Care Physician Practice Market Manager Name Role Phone Cal, Erosdre Sawant MD Primary Care Provider [phone] Self-Referred, Patient Unavailable Unavailab Zachariah Monroy MD, PhD Unavailable + [phone] Encounter Details Date Type Department Care Team (Late st Contact Info) Description 10/31/2022 Ancillary Orders [facility] [address] [address] Olivia Scott MD [address] [place] [address] [email or web address] Abnormal finding on breast imaging Social History [...] high school, GED, job training, learning the Kiny[place] language, technical skills, or developing parenting skills)? [...] Oncology, [facility], [facility] [place] [facility] [place] [address] [address] Annetta Linares NP [address] [place] [address] [email or web address]. [email or web address] Olivia Scott MD [address] [place] [address] [email or web address] 03/29/2025 9:30 AM EST Office Visit [facility], [facility], [facility] [place] [facility] [place] 300 [facility] [address] [place] [address] Zachariah Hi MD, PhD [address] [place] [address] [email or web address] documented as of this encounter Results * BI MAMMOGRAM DIAGNOSTIC WITH TOMOSYNTHESIS WITH CAD (LEFT) (10/31/2022 2:17 PM EDT) Anatomical Region Laterality Modality Breast Left, Breast Bilateral Left Ma mmography 10/31/2022 2:23 PM EDT Impressions 10/31/2022 5:45 PM EDT Probably benign regional punctate calcifications on the left, which appear symmetric from contralateral calcifications as seen on recent outside mammogram of the right breast. Follow-up imaging is recommended with left diagnostic mammogram in 6 months. BI-RADS 3 PROBABLY BENIGN Short interval follow-up suggested Results and recommendations were communicated to the patient at time of examination. The breast imaging department will assist the patient in scheduling the recommended follow-up imaging. ATTESTATION: ICarl, as teaching physician have reviewed the images, if any, for this patient's exam, and if necessary, have edited the report originally created by Rocío Mathur. Narrative 10/31/2022 5:45 PM EDT BI MAMMOGRAM DIAGNOSTIC WITH TOMOSYNTHESIS WITH CAD (LEFT) Additional patient information: 47-year-old woman with recently diagnosed right breast cancer (invasive lobular carcinoma) who presents for updated left breast mammogram. COMPARISON: Comparison is made with relevant prior imaging. Breast composition: The breast tissue is extremely dense which lowers the sensitivity of mammography. FINDINGS: Left Mammogram: Standard views and additional magnification views reveal regional punctate calcifications in the central outer breast, possibly increased compared to prior mammograms dating back to 2019 although these appear similar to contralateral calcifications as seen on most recent right diagnostic mammogram performed at outside institution on 07/20/2022. A few calcifications appear to layer on lateral view. Procedure Note Carl Little MD, MSc - 10/31/2022 BI MAMMOGRAM DIAGNOSTIC WITH TOMOSYNTHESIS WITH CAD (LEFT) Additional patient information: 47-year-old woman with recently diagnosedright breast cancer (invasive lobular carcinoma) who presents for updatedleft breast mammogram. COMPARISON: Comparison is made with relevant prior imaging. Breast composition: The breast tissue is extremely dense which lowers thesensitivity of mammography. FINDINGS: Left Mammogram: Standard views and additional magnification views reveal regional punctatecalcifications in the central outer breast, possibly increased compared toprior mammograms dating back to 2019 although these appear similar tocontralateral calcifications as seen on most recent right diagnosticmammogram performed at outside institution on 07/20/2022. A fewcalcifications appear to layer on lateral view. IMPRESSION: Probably benign regional punctate calcifications on the left, which appearsymmetric from contralateral calcifications as seen on recent outsidemammogram of the right breast. Follow-up imaging is recommended with leftdiagnostic mammogram in 6 months. BI-RADS 3 PROBABLY BENIGN Short interval follow-up suggested Results and recommendations were communicated to the patient at time ofexamination. The breast imaging department will assist the patient inscheduling the recommended follow-up imaging. ATTESTATION: I, Carl Little, as teaching physician have reviewedthe images, if any, for this patient's exam, and if necessary, have editedthe report originally created by Rocío Mathur. Olivia Scott MD IMG MG EXAMS Final Result documented in this encounter Visit Diagnoses Diagnosis Abnormal finding on breast imaging Abnormal finding on breast imaging documented in this encounter Care Teams Physician Practice Market Manager Relationship Specialty Start Date End Date Eros Mccall MD [address] [place] [address] [place] [address] PCP - General Internal Medicine 10/19/22 Self-Referred, Patient 10/19/22 Zachariah Hi MD, PhD [address] [place] [address] [email or web address] Medical Oncology 05/08/23 documented as of this encounter Additional Source Comments The information contained in this document represents components of the legal health record. It is not the complete legal health record.[facility]
--- OUTSIDE RECORDS SUMMARY | 2024-12-23 19:19 | XMS_ITS | Encounter Summary ---
Author Organization [facility] Address [address] [place] [address] Phone Care Team Providers Care Chronic Disease Epidemiologist Name Role Phone CalEros tabares Savana SANTILLAN Primary Care Provider [phone] Self-Referred, Patient Unavailable Unavailab Zachariah Monroy MD, PhD Unavailable + [phone] Encounter Details Date Type Department Care Team (Late st Contact Info) Description 10/31/2022 Procedure Pass [facility] [address] [facility] 2nd [place] [address] Social History Tobacco Use Types Packs/Day Years [...] high school, GED, job training, learning the [place] language, technical skills, or developing parenting skills)? [...] Oncology, [facility], [facility] [place] at [address] [address] Annetta Linares NP [address] [place] [address] [email or web address] Olivia Scott MD [address] [place] [address] [email or web address] 03/29/2025 9:30 AM EST Office Visit [facility], [facility], [facility] [place] [facility] [place] [address] [facility] 4th [place] [address] Zachariah Hi MD, PhD [address] [place] [address] [email or web address] documented as of this encounter Visit Diagnoses Not on filedocumented in this encounter Care Teams Chronic Disease Epidemiologist Relationship Specialty Start Date End Date Eros Mccall MD 21 [facility] [address] [place] [address] PCP - General Internal Medicine 10/19/22 Self-Referred, Patient 10/19/22 Zachariah Hi MD, PhD [address] [place] [address] [email or web address] Medical Oncology 05/08/23 documented as of this encounter Additional Source Comments The information contained in this document represents components of the legal health record. It is not the complete legal health record.[facility]
== END 2024-12-23 15:29 | disposition home or self-care (01) ==
LOC: HO.HSM 14:54
PROVIDERS: PCP Internal Medicine; Visit Provider Psychiatry & Neurology Neurology
DX: G43.009 Migraine without aura, not intractable, without status migrainosus (principal); G47.33 Obstructive sleep apnea (adult) (pediatric)
CPT/HCPCS: 99214